=== PATIENT | female | born 1980 | race Caucasian/White ===

== ENCOUNTER → 2016-11-24 | Outpatient (CLI) | payer BC ==
[~2016-11-24] VITALS: Ht 22.9 cm; Wt 60.0 kg
[~2016-11-24] MED LIST: MULTI-VITAMIN1 EACH PO; NATURAL IRON65 MG PO
[2016-11-25 13:05] VITALS: BP 96/64
[2016-11-25 13:11] VITALS: BP 102/60
[2016-11-25 13:18] VITALS: BP 96/57
[2016-11-25 14:25] VITALS: BP 82/59
[2016-11-25 14:40] VITALS: BP 84/60
[2016-11-25 15:50] VITALS: BP 99/65
[2016-11-29 15:05] VITALS: BP 122/65
[2016-11-29 16:35] VITALS: BP 125/61
== END ==
LOC: AMSURD 14:36
DX: D50.9 Iron deficiency anemia, unspecified (principal)
CPT/HCPCS: J7050; P9016